=== PATIENT | male | born 1990 | race Two or more races ===

== ENCOUNTER 2017-02-22 04:23 | Emergency (ER) | payer OTHER ==
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
== END 2017-02-22 11:28 | disposition hospice, home (50) ==
LOC: CED 04:23
DX: S02.642B Fracture of ramus of left mandible, initial encounter for open fracture (principal); S02.611B Fracture of condylar process of right mandible, initial encounter for open fracture; Z23 Encounter for immunization; W50.0XXA Accidental hit or strike by another person, initial encounter; Y92.9 Unspecified place or not applicable
CPT/HCPCS: 70450; 70486; 90471; 90715; 96372; 99284; J0295; J1170; J1885